=== PATIENT | male | born 1960 | race Caucasian/White ===

== ENCOUNTER 2021-08-29 15:14 | Inpatient (IN) | payer BC ==
[~2021-08-29] VITALS: Ht 185.4 cm; Wt 80.0 kg
[~2021-08-29 15:14] MED LIST: IBUPROFEN800 MG PO
[2021-08-29 15:53] LABS: HEMOGLOBIN 8.1 gm/dl (14.0-17.5); RED BLOOD COUNT 2.79 M/UL (4.20-5.50); WHITE BLOOD COUNT 7.3 K/UL (4.5-11.0)
[2021-08-29 16:19] LABS: BUN/CREATININE RATIO 55 (0-10)
[2021-08-29 19:44] LABS: HEMOGLOBIN 4.8 gm/dl (14.0-17.5)
[2021-08-30 05:34] LABS: HEMOGLOBIN 10.7 gm/dl (14.0-17.5); RED BLOOD COUNT 3.8 M/UL (4.20-5.50); WHITE BLOOD COUNT 10.7 K/UL (4.5-11.0)
[2021-08-30 06:47] LABS: BUN/CREATININE RATIO 38 (0-10)
[2021-08-30 10:15] LABS: HEMOGLOBIN 10.6 gm/dl (14.0-17.5); RED BLOOD COUNT 3.83 M/UL (4.20-5.50); WHITE BLOOD COUNT 10.8 K/UL (4.5-11.0)
[2021-08-30 16:40] LABS: HEMOGLOBIN 9.9 gm/dl (14.0-17.5); RED BLOOD COUNT 3.64 M/UL (4.20-5.50); WHITE BLOOD COUNT 13.4 K/UL (4.5-11.0)
[2021-08-30 23:12] LABS: HEMOGLOBIN 10.1 gm/dl (14.0-17.5)
[2021-08-31 05:45] LABS: HEMOGLOBIN 9.7 gm/dl (14.0-17.5); RED BLOOD COUNT 3.42 M/UL (4.20-5.50)
[2021-08-31 05:55] LABS: WHITE BLOOD COUNT 17.4 K/UL (4.5-11.0)
[2021-08-31 06:01] LABS: BUN/CREATININE RATIO 35 (0-10)
[2021-08-31 10:01] LABS: HEMOGLOBIN 9.9 gm/dl (14.0-17.5)
--- NOTE | 2021-08-31 14:36 | NUR ---
[address] PAEZ OF BLEEDING FROM NG TUBE AND PT FAILED WEANING TRIAL FROM VENT. DR PASCAL AT BEDSIDE DURING WEANING TRAIL ALSO NOTED BLOOD FROM OG AND TOLD ME TO INFORM DR PAEZ. [address] PAEZ INFORMED OF PATIENTS CONDITION. BP 52/24 HR 32 BLOOD IN NG TUBING [address] PASCAL OF PATIENTS CONDITION
[2021-08-31 19:01] LABS: HEMOGLOBIN 9.5 gm/dl (14.0-17.5)
[2021-09-01 05:11] LABS: HEMOGLOBIN 8.9 gm/dl (14.0-17.5); RED BLOOD COUNT 3.17 M/UL (4.20-5.50); WHITE BLOOD COUNT 7.3 K/UL (4.5-11.0)
[2021-09-01 05:32] LABS: BUN/CREATININE RATIO 25 (0-10)
[2021-09-02 08:14] LABS: APTT 24.4 sec (22.9-30.2)
== END 2021-09-01 11:23 | disposition short-term general hospital (02) | DRG 377 ==
LOC: ER1 15:14 → CDU 19:50 → CCU 08-30 00:49
PROVIDERS: Emergency Medicine; Internal Medicine; Nurse Practitioner; Physician Assistant; ADMIT Surgery
PROC: 0W3P8ZZ Control Bleeding in Gastrointestinal Tract, Via Natural or Artificial Opening Endoscopic (ICD-10-PCS; 2021-08-29)
PROC: 5A1955Z Respiratory Ventilation, Greater than 96 Consecutive Hours (ICD-10-PCS; 2021-08-29)
PROC: 0DJ08ZZ Inspection of Upper Intestinal Tract, Via Natural or Artificial Opening Endoscopic (ICD-10-PCS; 2021-08-31)
PROC: 05HN33Z Insertion of Infusion Device into Left Internal Jugular Vein, Percutaneous Approach (ICD-10-PCS; 2021-08-31)
PROC: 03HY32Z Insertion of Monitoring Device into Upper Artery, Percutaneous Approach (ICD-10-PCS; 2021-08-31)
PROC: 3E033XZ Introduction of Vasopressor into Peripheral Vein, Percutaneous Approach (ICD-10-PCS; 2021-08-31)
PROC: 30233N1 Transfusion of Nonautologous Red Blood Cells into Peripheral Vein, Percutaneous Approach (ICD-10-PCS; principal; 2021-08-31 12:29)
DX: K25.4 Chronic or unspecified gastric ulcer with hemorrhage (principal); U07.1 COVID-19; J96.01 Acute respiratory failure with hypoxia; G93.41 Metabolic encephalopathy; R57.8 Other shock; A41.9 Sepsis, unspecified organism; J84.9 Interstitial pulmonary disease, unspecified; D62 Acute posthemorrhagic anemia; F15.20 Other stimulant dependence, uncomplicated; K63.9 Disease of intestine, unspecified; F19.10 Other psychoactive substance abuse, uncomplicated; R73.9 Hyperglycemia, unspecified; Z99.81 Dependence on supplemental oxygen; Z79.899 Other long term (current) drug therapy; Z79.82 Long term (current) use of aspirin
CPT/HCPCS: 0240U; 36415; 36600; 71045; 80048; 80053; 80307; 81001; 82272; 82550; 82553; 82803; 82962; 83036; 83540; 83550; 83605; 83735; 83874; 83880; 84439; 84443; 84484; 85014; 85018; 85025; 85027; 85379; 85610; 85730; 85732; 86850; 86900; 86901; 86920; 87040; 87081; 93005; 94002; 94003; 94760; 96374; 96375; 99285; C9113; J0171; J0461; J0692; J1100; J2060; J2250; J2354; J2370; J2405; J2704; J3010; J7030; J7040; J7120; P9016; Q9967